=== PATIENT | male | born 1935 ===

== ENCOUNTER → 2017-03-24 | Outpatient (CLI) | payer MEDICARE, MEDICAID ==
[~2017-03-24] VITALS: Ht 165.1 cm; Wt 96.0 kg
[~2017-03-24] MED LIST: AMLO-511 PO; CARV3 PO; COMB5OS; DILT30 PO; DOXY50CA7 PO; DUTA.5 PO; FURO40 PO; IPRA3AMP4 NEB; LISI-662 PO
[2017-03-24 14:31] VITALS: BP 123/74
== END | disposition home or self-care (01) ==
LOC: SRCNTR 14:17
PROVIDERS: ATTEND Internal Medicine Clinical Cardiac Electrophysiology
DX: Z45.018 Encounter for adjustment and management of other part of cardiac pacemaker (principal); I10 Essential (primary) hypertension; E78.5 Hyperlipidemia, unspecified; I35.0 Nonrheumatic aortic (valve) stenosis; I48.2 Chronic atrial fibrillation
CPT/HCPCS: G0463